=== PATIENT | female | born 1975 | race Caucasian/White ===

== ENCOUNTER 2019-01-20 13:36 | Emergency (ER) | payer MEDICAID ==
[~2019-01-20] VITALS: Ht 162.6 cm; Wt 64.0 kg
[2019-01-20 13:44] VITALS: BP 136/85
[2019-01-20] MEDS ORDERED: dexamethasone sod phosphate 10mg/ml inj IM STA (14:12)
[2019-01-20] MEDS ORDERED: proCHLORperazine 10 MG/2 ml inj IM ONE (14:15)
[2019-01-20] MEDS ORDERED: SUMAtriptan succ. 6 MG/0.5ml vial SQ ONE (14:15)
== END 2019-01-20 15:15 | disposition home or self-care (01) ==
LOC: ER 13:38
DX: G43.909 Migraine, unspecified, not intractable, without status migrainosus (principal); M54.9 Dorsalgia, unspecified
CPT/HCPCS: 96372; 99283; J0780; J1100; J3030